=== PATIENT | female | born 1990 | race Caucasian/White ===

== ENCOUNTER 2024-01-03 10:19 | Emergency (ER) | payer BC, SELFPAY ==
[2024-01-03 10:55] VITALS: BP 128/75
--- NOTE | 2024-01-03 12:04 | ED.SKININJ ---
HPI-Injury
General
Chief Complaint: Skin Problem
Source: patient
Exam Limitations: none
Time Seen by Provider: 01/03/24 11:50
Travel History
Have you had any contact with someone who has COVID-19?: No
Do you have any symptoms of coronavirus? Fever > 100 degrees, chills, cough, shortness of breath, sore throat, loss of taste or smell, muscle aches, or headache?: No
History of Present Illness-Injury
Initial Injury comments:
33-year-old female presents with diffuse rash starting 2 days ago. The rash is not itchy or painful. No associated fever. No other complaints. Of note, the patient started Bactrim 3 times a week. She started this 2 weeks ago. She has had a
total of 6 doses. She started this for IgA nephropathy. She is followed by nephrology. She also is on prednisone 60 mg daily.
Phy Exam
Physical Exam
Physical Exam:
General: Well-appearing female no acute respiratory distress
HEENT: Normocephalic atraumatic neck is supple posterior pharynx without erythema or exudate
Heart: Regular rate and rhythm no murmurs
Lungs: Clear to auscultation bilaterally no wheezing
Skin: Diffuse urticarial rash over the face trunk arms and legs palms and soles as well. This is nonpruritic nor is it tender no underlying fluctuance or induration
Extremities: No cyanosis
Course
Orders/Labs/Results
Orders:
Orders
01/03/24 12:15
Complete Blood Count/With Diff Urgent
Comprehensive Metabolic Panel Urgent
Abnormal Lab Results
01/03/24
12:15
WBC 13.9 H 10^3/uL
(4.8-10.8)
RBC 3.94 L 10^6/uL
(4.20-5.40)
Hgb 11.4 L g/dL
(12.0-16.0)
Hct 33.7 L %
(37.0-47.0)
Abs Immat Gran (auto) 0.3 H 10^3/uL
(0-0.05)
Absolute Neuts (auto) 12.8 H 10^3/uL
(1.4-6.5)
Absolute Lymphs (auto) 0.7 L 10^3/uL
(1.2-3.4)
Immature Gran % 2.0 H %
(0-0.5)
Neutrophils % 92.0 H %
(42.2-75.2)
Lymphocytes % 5.2 L %
(20.5-51.1)
Monocytes % 0.7 L %
(1.7-9.3)
Sodium 128 L mmol/L
(135-145)
BUN 26 H mg/dl
(7-17)
Creatinine 1.2 H mg/dL
(0.6-1.0)
Total Protein 6.0 L g/dl
(6.3-8.2)
Albumin 3.4 L g/dl
(3.5-5.0)
01/03/24 12:15
01/03/24 12:15
Vital Signs
Initial and Last Documented VS:
Initial Vital Signs
Temp Pulse Resp BP Pulse Ox
100.0 F 100 16 128/75 100
01/03/24 10:55 01/03/24 10:55 01/03/24 10:55 01/03/24 10:55 01/03/24 10:55
Last Documented Vital Signs
Temp Pulse Resp BP Pulse Ox
100.0 F 100 16 128/75 100
01/03/24 10:55 01/03/24 10:55 01/03/24 10:55 01/03/24 10:55 01/03/24 10:55
MDM/Problems Addressed
Differential Diagnosis Includes:
Rash. Likely adverse reaction to Bactrim given recent start of this medication. Labs reviewed which demonstrated creatinine 1.2 sodium 128. White blood cell count slightly elevated but she is on prednisone. Patient has no complaints. Do not
suspect infectious source. Relayed to nephrology that we will discontinue the Bactrim and have her follow-up. Stable for discharge
*Critical Care Note
Total Time (30-74mins, 75-104mins- exclusive of procedures): Not Applicable
ED Attending Note
-
Portions of this chart may have been created with voice recognition software.� Occasional wrong word or��sound alike� substitutions may have occurred due to the inherent limitations of voice recognition software.
Discharge Plan
Departure
Patient Disposition: Home (Routine Discharge)
Date of Disposition: 01/03/24
Time of Disposition: 13:56
Patient with high blood pressure during this ER visit?: No
Discharge Problem:
Adverse drug reaction
Prescriptions:
No Action
norethindrone (contraceptive) 0.35 mg Tablet
0.35 mg PO DAILY
Referrals:
Yung Cabello MD [Family Provider] -
Activity Restrictions/Additional Instructions:
Stop Bactrim. Follow-up with nephrology. Return if needed. Continue prednisone
Interventions
Interventions:
*Risk Screen - Suicide Last Done: 01/03/24 11:16
*General Assessment Last Done: 01/03/24 12:48
*Neglect/Abuse Screening Last Done: 01/03/24 11:16
ED- Fall Risk Assessment Last Done: 01/03/24 11:16
*ED COVID-19 Vaccine History Last Done: 01/03/24 10:55
ED-Skin Assessment Last Done: 01/03/24 11:16
[2024-01-03 12:22] LABS: % Basophils 0.1 % (0-2); % Lymphocytes 5.2 % (20.5-51.1); % Monocytes 0.7 % (1.7-9.3); Absolute Immature Granulocytes 0.3 10^3/uL (0-0.05); Absolute Lymphocytes 0.7 10^3/uL (1.2-3.4); Absolute Monocytes 0.1 10^3/uL (0.1-0.6); Absolute Neutrophils 12.8 10^3/uL (1.4-6.5); Hematocrit 33.7 % (37.0-47.0); Hemoglobin 11.4 g/dL (12.0-16.0); Mean Corp Hgb Conc. 33.8 g/dL (33.0-37.0); Mean Corpuscular Hgb 28.9 pg (27.0-31.0); Mean Corpuscular Volume 85.5 fL (81.0-99.0); Mean Platelet Volume 8.3 fL (7.4-10.4); Nucleated Red Blood Cells % 0 %; Platelet Count 295 10^3/uL (130-400); Red Blood Cell Count 3.94 10^6/uL (4.20-5.40); Red Cell Dist. Width 13.8 % (11.5-14.5); White Blood Cell Count 13.9 10^3/uL (4.8-10.8)
[2024-01-03 12:39] LABS: ALT (SGPT) 17 U/L (0-35); AST (SGOT) 16 U/L (14-36); Albumin 3.4 g/dl (3.5-5.0); Alkaline Phosphatase 54 U/L (38-126); Blood Urea Nitrogen 26 mg/dl (7-17); Calcium 9.1 mg/dl (8.4-10.2); Carbon Dioxide 26 mmol/L (22-30); Chloride 99 mmol/L (98-107); Glucose 98 mg/dl (70-99); Potassium 4.7 mmol/L (3.5-5.1); Sodium 128 mmol/L (135-145); Total Bilirubin 1.1 mg/dl (0.2-1.3); eGFR > 60.00
[2024-01-03 14:12] VITALS: BP 125/80
== END 2024-01-03 14:13 | disposition home or self-care (01) ==
LOC: EMR 10:19
PROVIDERS: Physician Assistant; EMERGENCY PHYSICIAN Emergency Medicine; FAMILY PHYSICIAN Family Medicine
DX: R21 Rash and other nonspecific skin eruption (principal); T50.905A Adverse effect of unspecified drugs, medicaments and biological substances, initial encounter; Y92.9 Unspecified place or not applicable
CPT/HCPCS: 99283; 80053; 85025

== ENCOUNTER → 2024-09-10 11:20 | Outpatient (REF) | payer BC, SELFPAY | LOC: DHSLP 11:20 | PROVIDERS: ATTENDING PHYSICIAN Physician Assistant; FAMILY PHYSICIAN Internal Medicine Cardiovascular Disease | DX: G47.19 Other hypersomnia (principal); R06.83 Snoring | CPT/HCPCS: 95800 ==

== ENCOUNTER → 2024-11-05 10:23 | Outpatient (REF) | payer BC, SELFPAY | LOC: HWRAD 10:23 | PROVIDERS: ATTENDING PHYSICIAN Nurse Practitioner Adult Health; FAMILY PHYSICIAN Family Medicine; REFERRING PHYSICIAN Obstetrics & Gynecology | DX: Z12.31 Encounter for screening mammogram for malignant neoplasm of breast (principal) | CPT/HCPCS: 77063; 77067 ==

== ENCOUNTER → 2024-12-01 10:50 | Outpatient (REF) | payer BC, SELFPAY | LOC: WDC 10:50 | PROVIDERS: ATTENDING PHYSICIAN Nurse Practitioner Adult Health | DX: R92.30 Dense breasts, unspecified (principal); Z80.3 Family history of malignant neoplasm of breast | CPT/HCPCS: 76641 ==